=== PATIENT | male | born 1975 | race Caucasian/White ===

== ENCOUNTER 2022-03-13 23:43 | Emergency (ER) | payer OTHER ==
[~2022-03-13] VITALS: Ht 177.8 cm; Wt 93.9 kg
[2022-03-14] MEDS ORDERED: IBUP-2070 PO (01:17)
[2022-03-14 01:21] LABS: APPEARANCE,URINE CLEAR (CLEAR); BILIRUBIN,URINE NEGATIVE (NEGATIVE); COLOR,URINE YELLOW (YELLOW); GLUCOSE, URINE (UA) NEGATIVE (NEGATIVE); KETONES,URINE NEGATIVE (NEGATIVE); LEUKOCYTE ESTERASE ,URINE NEGATIVE (NEGATIVE); NITRATE,URINE NEGATIVE (NEGATIVE); OCCULT BLOOD,URINE NEGATIVE (NEGATIVE); PH,URINE 6.5 (5.0-8.0); PROTEIN,URINE NEGATIVE (NEGATIVE); UROBILINOGEN,URINE 0.2 mg/dL (0.2-1.0)
[2022-03-14 01:23] LABS: BASOPHILS % (AUTO) 0.9 % (0.0-5.0); EOSINOPHILS % (AUTO) 5.8 % (0.0-8.0); HEMATOCRIT 37.7 % (42-54); MEAN CORPUSCULAR HEMOGLOBIN 28.3 pg (27.0-33.0); MEAN CORPUSCULAR HGB CONC 32.9 g/dL (32.0-36.0); MEAN CORPUSCULAR VOLUME 86.1 fL (79-99); MONOCYTES % (AUTO) 12.2 % (3.0-13.0); NEUTROPHILS % (AUTO) 49.8 % (40.0-77.0); PLATELET COUNT (AUTO) 302 K/uL (130-400); RED BLOOD CELL COUNT(AUTO) 4.38 MIL/uL (4.50-6.20); RED CELL DISTRIBUTION WIDTH 12.6 % (11.0-15.5); WHITE BLOOD COUNT (AUTO) 7.7 K/uL (4.8-10.8)
[2022-03-14 01:29] LABS: AMPHET/METH SCREEN,URINE NEGATIVE (NEGATIVE); BARBITURATE SCREEN, URINE NEGATIVE (NEGATIVE); BENZODIAZEPINES SCREEN,URINE NEGATIVE (NEGATIVE); CANNABINOID SCREEN,URINE NEGATIVE (NEGATIVE); COCAINE SCREEN,URINE NEGATIVE (NEGATIVE); OPIATE SCREEN,URINE NEGATIVE (NEGATIVE); PHENCYCLIDINE SCREEN,URINE NEGATIVE (NEGATIVE)
[2022-03-14] MEDS ORDERED: IBUPROFEN 600 MG TABLET PO ONE (01:30)
[2022-03-14 01:35] LABS: CREATININE 0.8 mg/dL (0.5-1.5); POTASSIUM 3.8 mmol/L (3.5-5.1)
[2022-03-14 01:39] LABS: ALBUMIN 3.4 g/dL (3.5-5.0); BILIRUBIN,TOTAL 0.1 mg/dL (0.2-1.0); TOTAL PROTEIN, SERUM 6.5 g/dL (6.0-8.3)
[2022-03-14 01:46] VITALS: BP 114/72
== END 2022-03-14 02:30 | disposition home or self-care (01) ==
LOC: EDH 23:43
DX: R51.9 Headache, unspecified (principal); F99 Mental disorder, not otherwise specified; F17.200 Nicotine dependence, unspecified, uncomplicated
CPT/HCPCS: 36415; 80053; 80305; 81003; 85025

== ENCOUNTER 2022-04-05 00:29 | Emergency (ER) | payer OTHER ==
[~2022-04-05 00:29] MED LIST: IBUP-2070 PO
[2022-04-05] MEDS ORDERED: KETOROLAC 60 MG VIAL (30MG/ML) IM ONE (02:00)
[2022-04-05] MEDS ORDERED: DICL35CA3 PO (02:02)
[2022-04-05 02:18] VITALS: BP 146/88
== END 2022-04-05 02:51 | disposition home or self-care (01) ==
LOC: EDH 00:29
DX: R51.9 Headache, unspecified (principal); F17.200 Nicotine dependence, unspecified, uncomplicated; Z79.1 Long term (current) use of non-steroidal anti-inflammatories (NSAID)
CPT/HCPCS: 99283; 96372; 93005; J1885

== ENCOUNTER 2023-03-26 00:30 | Emergency (ER) | payer OTHER ==
[~2023-03-26] VITALS: Ht 177.8 cm; Wt 95.3 kg
[~2023-03-26 00:30] MED LIST changes: +DICL35CA3 PO
[2023-03-26 01:43] LABS: BASOPHILS % (AUTO) 0.8 % (0.0-5.0); EOSINOPHILS % (AUTO) 6.2 % (0.0-8.0); HEMATOCRIT 39.7 % (42-54); LYMPHOCYTES % (AUTO) 26.4 % (21.0-51.0); MEAN CORPUSCULAR HEMOGLOBIN 28.3 pg (27.0-33.0); MEAN CORPUSCULAR HGB CONC 32.7 g/dL (32.0-36.0); MEAN CORPUSCULAR VOLUME 86.5 fL (79-99); MONOCYTES % (AUTO) 8.9 % (3.0-13.0); NEUTROPHILS % (AUTO) 57.4 % (40.0-77.0); PLATELET COUNT (AUTO) 298 K/uL (130-400); RED BLOOD CELL COUNT(AUTO) 4.59 MIL/uL (4.50-6.20); RED CELL DISTRIBUTION WIDTH 12.9 % (11.0-15.5); WHITE BLOOD COUNT (AUTO) 7.6 K/uL (4.8-10.8)
[2023-03-26 02:19] LABS: CREATININE 0.9 mg/dL (0.5-1.5); POTASSIUM 3.7 mmol/L (3.5-5.1)
[2023-03-26 02:25] LABS: ALBUMIN 3.6 g/dL (3.5-5.0); MAGNESIUM 2.1 mg/dL (1.80-2.40); TOTAL PROTEIN, SERUM 6.5 g/dL (6.0-8.3)
[2023-03-26] MEDS ORDERED: METOCLOPRAMIDE 10 MG/2 ML VIAL IVP ONE (02:30)
[2023-03-26] MEDS ORDERED: FAMOTIDINE 20MG VIAL IV ONE (02:30)
[2023-03-26] MEDS ORDERED: KETOROLAC 30MG VIAL (30MG/ML) IVP ONE (02:30)
[2023-03-26] MEDS ORDERED: ASPIRIN 325MG TAB PO ONE (02:30)
[2023-03-26] MEDS ORDERED: HYDR50CA50 PO (02:55)
[2023-03-26] MEDS ORDERED: METO-296 PO (02:55)
[2023-03-26 02:57] VITALS: BP 101/65
== END 2023-03-26 03:09 | disposition home or self-care (01) ==
LOC: EDH 00:30
DX: G44.209 Tension-type headache, unspecified, not intractable (principal); F41.9 Anxiety disorder, unspecified; F17.200 Nicotine dependence, unspecified, uncomplicated; Z20.822 Contact with and (suspected) exposure to COVID-19; Z79.899 Other long term (current) drug therapy
CPT/HCPCS: 99285; 96374; 71045; 96375; 87635; 82550; 83735; 83874; 84484; 80053; 83690; 85025; 87804 ×2; 83605; 36415; 93005; C9803; J3490; J1885; J2765

== ENCOUNTER 2023-04-03 03:33 | Emergency (ER) | payer OTHER ==
[~2023-04-03] VITALS: Ht 180.3 cm; Wt 97.5 kg
[~2023-04-03 03:33] MED LIST changes: +HYDR50CA50 PO; +METO-296 PO
[2023-04-03 04:36] VITALS: BP 148/84
[2023-04-03] MEDS ORDERED: METOCLOPRAMIDE 10 MG/2 ML VIAL IVP ONE (05:00)
[2023-04-03] MEDS ORDERED: DiphenhydrAMINE HCL 50 MG/ML VIAL IV ONE (05:00)
[2023-04-03] MEDS ORDERED: KETOROLAC 30MG VIAL (30MG/ML) IVP ONE (05:00)
== END 2023-04-03 06:09 | disposition home or self-care (01) ==
LOC: EDH 03:33
DX: G43.909 Migraine, unspecified, not intractable, without status migrainosus (principal); F17.200 Nicotine dependence, unspecified, uncomplicated; Z79.899 Other long term (current) drug therapy
CPT/HCPCS: 99284; 96374; 96375; J1200; J1885; J2765

== ENCOUNTER 2023-04-16 06:17 | Emergency (ER) | payer OTHER ==
[~2023-04-16] VITALS: Ht 177.8 cm; Wt 99.8 kg
[2023-04-16 06:37] VITALS: BP 126/72; PULSE 69; RESP 14; O2SAT 98
[2023-04-16] MEDS ORDERED: METOCLOPRAMIDE 10 MG/2 ML VIAL IVP ONE (07:30)
[2023-04-16] MEDS ORDERED: DEXAMETHASONE SOD PHOSPHATE 4 MG/ML 1ML VIAL IVP ONE (07:30)
[2023-04-16] MEDS ORDERED: MORPHINE 2 MG SYG IVP ONE (07:30)
[2023-04-16 07:37] LABS: MEAN CORPUSCULAR HEMOGLOBIN 28.3 pg (27.0-33.0); MEAN CORPUSCULAR HGB CONC 32.8 g/dL (32.0-36.0); MEAN CORPUSCULAR VOLUME 86.3 fL (79-99); RED BLOOD CELL COUNT(AUTO) 4.52 MIL/uL (4.50-6.20); RED CELL DISTRIBUTION WIDTH 12.8 % (11.0-15.5); WHITE BLOOD COUNT (AUTO) 7.1 K/uL (4.8-10.8)
[2023-04-16 07:49] LABS: CREATININE 0.8 mg/dL (0.5-1.5)
[2023-04-16 08:18] LABS: APPEARANCE,URINE CLEAR (CLEAR); BILIRUBIN,URINE NEGATIVE (NEGATIVE); COLOR,URINE COLORLESS (YELLOW); GLUCOSE, URINE (UA) NEGATIVE (NEGATIVE); KETONES,URINE NEGATIVE (NEGATIVE); LEUKOCYTE ESTERASE ,URINE NEGATIVE Leu/uL (NEGATIVE); NITRATE,URINE NEGATIVE (NEGATIVE); OCCULT BLOOD,URINE NEGATIVE (NEGATIVE); PROTEIN,URINE NEGATIVE (NEGATIVE); UROBILINOGEN,URINE 0.2 mg/dL (0.2-1.0)
[2023-04-16 08:25] LABS: AMPHET/METH SCREEN,URINE NEGATIVE (NEGATIVE); BARBITURATE SCREEN, URINE NEGATIVE (NEGATIVE); BENZODIAZEPINES SCREEN,URINE NEGATIVE (NEGATIVE); CANNABINOID SCREEN,URINE NEGATIVE (NEGATIVE); COCAINE SCREEN,URINE NEGATIVE (NEGATIVE); OPIATE SCREEN,URINE NEGATIVE (NEGATIVE); PHENCYCLIDINE SCREEN,URINE NEGATIVE (NEGATIVE)
== END 2023-04-16 08:15 | disposition left against medical advice (07) ==
LOC: EDH 06:17
DX: R07.9 Chest pain, unspecified (principal); R51.9 Headache, unspecified
CPT/HCPCS: 36415; 80048; 80305; 81003; 84484; 85027; 96374; 96375; J1100; J2270; J2765

== ENCOUNTER 2023-04-27 03:23 | Emergency (ER) | payer OTHER ==
[~2023-04-27] VITALS: Ht 180.3 cm; Wt 99.3 kg
[2023-04-27] MEDS ORDERED: ASPIRIN 325MG TAB PO ONE (04:00)
[2023-04-27 04:13] LABS: RAPID GROUP A STREP negative (NEGATIVE)
[2023-04-27 04:16] LABS: SARS-CoV-2, RNA, NAAT NEGATIVE SARS CoV-2 (NEGATIVE)
[2023-04-27 04:23] LABS: INFLUENZA TYPE A Negative For Type A (NEGATIVE); INFLUENZA TYPE B Negative For Type B (NEGATIVE)
[2023-04-27 04:33] LABS: BASOPHILS # (AUTO) 0.05 K/uL (0.00-0.20); BASOPHILS % (AUTO) 0.7 % (0.0-5.0); EOSINOPHILS # (AUTO) 0.36 K/uL (0.00-0.70); EOSINOPHILS % (AUTO) 4.9 % (0.0-8.0); HEMATOCRIT 37.2 % (42-54); IMMATURE GRANULOCYTE ABSOLUTE 0.03 K/uL (0-1); LYMPHOCYTES % (AUTO) 27.4 % (21.0-51.0); MEAN CORPUSCULAR HEMOGLOBIN 29.1 pg (27.0-33.0); MEAN CORPUSCULAR HGB CONC 33.6 g/dL (32.0-36.0); MEAN CORPUSCULAR VOLUME 86.5 fL (79-99); MONOCYTES # (AUTO) 0.8 K/uL (0.1-1.0); MONOCYTES % (AUTO) 10.5 % (3.0-13.0); NEUTROPHILS # (AUTO) 4.1 K/uL (1.8-7.7); NEUTROPHILS % (AUTO) 56.1 % (40.0-77.0); PLATELET COUNT (AUTO) 262 K/uL (130-400); RED CELL DISTRIBUTION WIDTH 13.2 % (11.0-15.5); WHITE BLOOD COUNT (AUTO) 7.3 K/uL (4.8-10.8)
[2023-04-27 04:40] LABS: CREATININE 0.9 mg/dL (0.5-1.5); POTASSIUM 3.7 mmol/L (3.5-5.1)
[2023-04-27 05:25] VITALS: BP 130/72; PULSE 80; RESP 18; O2SAT 98
== END 2023-04-27 05:30 | disposition home or self-care (01) ==
LOC: EDH 03:23
DX: R07.89 Other chest pain (principal); F17.200 Nicotine dependence, unspecified, uncomplicated; Z20.822 Contact with and (suspected) exposure to COVID-19; Z79.899 Other long term (current) drug therapy
CPT/HCPCS: 99285; 71045; 87635; 84484; 80048; 85025; 85378; 87880; 87804 ×2; 36415; 93005; C9803

== ENCOUNTER 2023-04-29 17:37 | Emergency (ER) | payer OTHER ==
[~2023-04-29] VITALS: Ht 180.3 cm; Wt 97.5 kg
[2023-04-29 18:14] LABS: APPEARANCE,URINE CLEAR (CLEAR); BILIRUBIN,URINE NEGATIVE (NEGATIVE); COLOR,URINE YELLOW (YELLOW); GLUCOSE, URINE (UA) NEGATIVE (NEGATIVE); KETONES,URINE NEGATIVE (NEGATIVE); LEUKOCYTE ESTERASE ,URINE NEGATIVE Leu/uL (NEGATIVE); NITRATE,URINE NEGATIVE (NEGATIVE); OCCULT BLOOD,URINE NEGATIVE (NEGATIVE); PROTEIN,URINE 30 mg/dL (NEGATIVE); UROBILINOGEN,URINE 0.2 mg/dL (0.2-1.0)
[2023-04-29 18:18] LABS: BASOPHILS # (AUTO) 0.05 K/uL (0.00-0.20); BASOPHILS % (AUTO) 0.6 % (0.0-5.0); CREATININE 1.1 mg/dL (0.5-1.5); EOSINOPHILS # (AUTO) 0.36 K/uL (0.00-0.70); EOSINOPHILS % (AUTO) 4.2 % (0.0-8.0); HEMATOCRIT 41.2 % (42-54); IMMATURE GRANULOCYTE ABSOLUTE 0.03 K/uL (0-1); LYMPHOCYTES # (AUTO) 2.3 K/uL (1.0-4.8); LYMPHOCYTES % (AUTO) 26.4 % (21.0-51.0); MEAN CORPUSCULAR HEMOGLOBIN 28.4 pg (27.0-33.0); MONOCYTES # (AUTO) 0.8 K/uL (0.1-1.0); MONOCYTES % (AUTO) 9.4 % (3.0-13.0); NEUTROPHILS # (AUTO) 5.1 K/uL (1.8-7.7); NEUTROPHILS % (AUTO) 59.1 % (40.0-77.0); PLATELET COUNT (AUTO) 339 K/uL (130-400); POTASSIUM 3.4 mmol/L (3.5-5.1); RED BLOOD CELL COUNT(AUTO) 4.79 MIL/uL (4.50-6.20); WHITE BLOOD COUNT (AUTO) 8.6 K/uL (4.8-10.8)
[2023-04-29 18:23] LABS: ADD UA MICROSCOPIC YES
[2023-04-29 18:28] LABS: ALBUMIN 3.2 g/dL (3.5-5.0); BILIRUBIN,TOTAL 0.3 mg/dL (0.2-1.0); TOTAL PROTEIN, SERUM 6.2 g/dL (6.0-8.3)
[2023-04-29] MEDS ORDERED: METOCLOPRAMIDE 10 MG/2 ML VIAL IVP ONE (18:30)
[2023-04-29] MEDS ORDERED: DiphenhydrAMINE HCL 50 MG/ML VIAL IV ONE (18:30)
[2023-04-29 18:43] LABS: BACTERIA,URINE RARE /HPF (None Seen); MUCUS,URINE MOD LPF (None Seen); OTHER CASTS, URINE 1 /LPF (None Seen); SQUAMOUS EPITHELIAL CELL,UR RARE /HPF (0-2); UNCLASSIFIED CRYSTAL 1 /HPF (None Seen)
[2023-04-29] MEDS ORDERED: PANTOPRAZOLE 40 MG/VIAL IVP ONE (19:00)
[2023-04-29] MEDS ORDERED: MAG/ALUM/SIMETH 30 ML UDCUP PO ONE (19:00)
[2023-04-29] MEDS ORDERED: POTASSIUM BICARB/CIT AC 25 MEQ TABLET.EFF PO ONE (22:00)
[2023-04-29] MEDS ORDERED: MELO-106 PO (22:12)
[2023-04-29] MEDS ORDERED: METO-296 PO (22:12)
[2023-04-29 22:15] VITALS: BP 117/81; PULSE 78; RESP 18; O2SAT 98
== END 2023-04-29 22:25 | disposition home or self-care (01) ==
LOC: EDH 17:37
DX: G43.909 Migraine, unspecified, not intractable, without status migrainosus (principal); E87.6 Hypokalemia; E07.89 Other specified disorders of thyroid; H57.13 Ocular pain, bilateral; F17.200 Nicotine dependence, unspecified, uncomplicated; Z79.899 Other long term (current) drug therapy; Z98.890 Other specified postprocedural states
CPT/HCPCS: 99285; 96374; 71045; 96375; 84484 ×2; 80053; 85025; 81001; 36415; 93005 ×2; J1200; C9113; J2765

== ENCOUNTER 2023-05-01 21:18 | Emergency (ER) | payer OTHER ==
[~2023-05-01] VITALS: Ht 180.3 cm; Wt 98.9 kg
[~2023-05-01 21:18] MED LIST changes: +MELO-106 PO
[2023-05-02 01:00] LABS: BASOPHILS # (AUTO) 0.05 K/uL (0.00-0.20); BASOPHILS % (AUTO) 0.6 % (0.0-5.0); EOSINOPHILS # (AUTO) 0.49 K/uL (0.00-0.70); EOSINOPHILS % (AUTO) 6.3 % (0.0-8.0); HEMATOCRIT 37.7 % (42-54); IMMATURE GRANULOCYTE ABSOLUTE 0.02 K/uL (0-1); LYMPHOCYTES # (AUTO) 2.5 K/uL (1.0-4.8); LYMPHOCYTES % (AUTO) 32.3 % (21.0-51.0); MEAN CORPUSCULAR HEMOGLOBIN 28.9 pg (27.0-33.0); MEAN CORPUSCULAR HGB CONC 33.4 g/dL (32.0-36.0); MEAN CORPUSCULAR VOLUME 86.5 fL (79-99); MONOCYTES # (AUTO) 0.9 K/uL (0.1-1.0); MONOCYTES % (AUTO) 11.2 % (3.0-13.0); NEUTROPHILS # (AUTO) 3.8 K/uL (1.8-7.7); NEUTROPHILS % (AUTO) 49.3 % (40.0-77.0); PLATELET COUNT (AUTO) 299 K/uL (130-400); RED BLOOD CELL COUNT(AUTO) 4.36 MIL/uL (4.50-6.20); WHITE BLOOD COUNT (AUTO) 7.8 K/uL (4.8-10.8)
[2023-05-02 01:11] LABS: POTASSIUM 3.6 mmol/L (3.5-5.1)
[2023-05-02 01:27] LABS: BILIRUBIN,TOTAL 0.2 mg/dL (0.2-1.0); TOTAL PROTEIN, SERUM 5.8 g/dL (6.0-8.3)
[2023-05-02] MEDS ORDERED: 0.9% NACL 500ML IV.SOLN 500 ML IV ONE (01:30)
[2023-05-02] MEDS ORDERED: ONDANSETRON 4MG INJ IVP ONE (01:30)
[2023-05-02] MEDS ORDERED: KETOROLAC 15MG/ML VIAL (15MG/ML) IV ONE (03:30)
[2023-05-02 04:25] VITALS: BP 109/59; PULSE 67; RESP 18; O2SAT 99
== END 2023-05-02 04:30 | disposition home or self-care (01) ==
LOC: EDH 21:18
DX: G43.909 Migraine, unspecified, not intractable, without status migrainosus (principal); F17.200 Nicotine dependence, unspecified, uncomplicated; Z79.899 Other long term (current) drug therapy
CPT/HCPCS: 99285; 84484; 80053; 85025; 36415; 93005; 96374; 71045; 96375; J7040; J2405; J1885

== ENCOUNTER 2023-05-02 18:04 | Emergency (ER) | payer OTHER ==
[~2023-05-02] VITALS: Ht 180.3 cm; Wt 97.5 kg
[2023-05-02 21:18] LABS: BASOPHILS # (AUTO) 0.05 K/uL (0.00-0.20); BASOPHILS % (AUTO) 0.6 % (0.0-5.0); EOSINOPHILS # (AUTO) 0.48 K/uL (0.00-0.70); EOSINOPHILS % (AUTO) 5.4 % (0.0-8.0); HEMATOCRIT 39.4 % (42-54); IMMATURE GRANULOCYTE ABSOLUTE 0.03 K/uL (0-1); LYMPHOCYTES # (AUTO) 2.8 K/uL (1.0-4.8); LYMPHOCYTES % (AUTO) 31.6 % (21.0-51.0); MEAN CORPUSCULAR HEMOGLOBIN 28.5 pg (27.0-33.0); MEAN CORPUSCULAR HGB CONC 32.2 g/dL (32.0-36.0); MEAN CORPUSCULAR VOLUME 88.5 fL (79-99); MONOCYTES # (AUTO) 0.8 K/uL (0.1-1.0); MONOCYTES % (AUTO) 8.9 % (3.0-13.0); NEUTROPHILS # (AUTO) 4.7 K/uL (1.8-7.7); NEUTROPHILS % (AUTO) 53.2 % (40.0-77.0); PLATELET COUNT (AUTO) 329 K/uL (130-400); RED BLOOD CELL COUNT(AUTO) 4.45 MIL/uL (4.50-6.20); WHITE BLOOD COUNT (AUTO) 8.8 K/uL (4.8-10.8)
[2023-05-02 21:27] LABS: CREATININE 0.9 mg/dL (0.5-1.5); POTASSIUM 3.8 mmol/L (3.5-5.1)
[2023-05-02 21:32] LABS: ALBUMIN 3.3 g/dL (3.5-5.0); BILIRUBIN,TOTAL 0.2 mg/dL (0.2-1.0); TOTAL PROTEIN, SERUM 6.4 g/dL (6.0-8.3)
[2023-05-02 22:01] VITALS: BP 111/62; PULSE 72; RESP 16; O2SAT 98
== END 2023-05-02 22:37 | disposition home or self-care (01) ==
LOC: EDH 18:04
DX: F41.9 Anxiety disorder, unspecified (principal); F17.200 Nicotine dependence, unspecified, uncomplicated; Z79.899 Other long term (current) drug therapy; Z98.890 Other specified postprocedural states
CPT/HCPCS: 36415; 71045; 80053; 84484; 85025; 93005

== ENCOUNTER 2023-05-03 11:47 | Emergency (ER) | payer OTHER ==
[~2023-05-03] VITALS: Ht 180.3 cm; Wt 97.5 kg
[2023-05-03 11:52] VITALS: BP 129/77; PULSE 70; RESP 16; O2SAT 98
[2023-05-03] MEDS ORDERED: ACETAMINOPHEN 500 MG TABLET PO SCH (13:30)
[2023-05-03 14:25] LABS: BASOPHILS # (AUTO) 0.06 K/uL (0.00-0.20); BASOPHILS % (AUTO) 0.9 % (0.0-5.0); EOSINOPHILS # (AUTO) 0.27 K/uL (0.00-0.70); HEMATOCRIT 40.9 % (42-54); IMMATURE GRANULOCYTE ABSOLUTE 0.02 K/uL (0-1); LYMPHOCYTES # (AUTO) 1.7 K/uL (1.0-4.8); LYMPHOCYTES % (AUTO) 24.5 % (21.0-51.0); MEAN CORPUSCULAR HEMOGLOBIN 28.4 pg (27.0-33.0); MEAN CORPUSCULAR HGB CONC 32.5 g/dL (32.0-36.0); MEAN CORPUSCULAR VOLUME 87.4 fL (79-99); MONOCYTES # (AUTO) 0.6 K/uL (0.1-1.0); MONOCYTES % (AUTO) 8.3 % (3.0-13.0); NEUTROPHILS # (AUTO) 4.2 K/uL (1.8-7.7); PLATELET COUNT (AUTO) 322 K/uL (130-400); RED BLOOD CELL COUNT(AUTO) 4.68 MIL/uL (4.50-6.20); RED CELL DISTRIBUTION WIDTH 12.9 % (11.0-15.5); WHITE BLOOD COUNT (AUTO) 6.8 K/uL (4.8-10.8)
[2023-05-03 14:39] LABS: CREATININE 0.9 mg/dL (0.5-1.5); POTASSIUM 4.8 mmol/L (3.5-5.1)
[2023-05-03 14:43] LABS: ALBUMIN 3.4 g/dL (3.5-5.0); BILIRUBIN,TOTAL 0.2 mg/dL (0.2-1.0); MAGNESIUM 2.3 mg/dL (1.80-2.40); TOTAL PROTEIN, SERUM 6.4 g/dL (6.0-8.3)
[2023-05-03] MEDS ORDERED: METOCLOPRAMIDE 10 MG/2 ML VIAL IM ONE (15:00)
[2023-05-03 18:56] LABS: APPEARANCE,URINE CLEAR (CLEAR); BILIRUBIN,URINE NEGATIVE (NEGATIVE); COLOR,URINE LIGHT-YELLOW (YELLOW); GLUCOSE, URINE (UA) NEGATIVE (NEGATIVE); KETONES,URINE NEGATIVE (NEGATIVE); LEUKOCYTE ESTERASE ,URINE NEGATIVE Leu/uL (NEGATIVE); NITRATE,URINE NEGATIVE (NEGATIVE); OCCULT BLOOD,URINE NEGATIVE (NEGATIVE); PH,URINE 5.5 (5.0-8.0); PROTEIN,URINE NEGATIVE (NEGATIVE); UROBILINOGEN,URINE 0.2 mg/dL (0.2-1.0)
[2023-05-03 19:02] LABS: ADD UA MICROSCOPIC YES; AMPHET/METH SCREEN,URINE NEGATIVE (NEGATIVE); BARBITURATE SCREEN, URINE NEGATIVE (NEGATIVE); BENZODIAZEPINES SCREEN,URINE NEGATIVE (NEGATIVE); CANNABINOID SCREEN,URINE NEGATIVE (NEGATIVE); COCAINE SCREEN,URINE NEGATIVE (NEGATIVE); OPIATE SCREEN,URINE NEGATIVE (NEGATIVE); PHENCYCLIDINE SCREEN,URINE NEGATIVE (NEGATIVE)
[2023-05-03 19:03] LABS: MUCUS,URINE RARE LPF (None Seen); WBC,URINE 0-1 /HPF (0-1)
== END 2023-05-03 20:04 | disposition left against medical advice (07) ==
LOC: EDH 11:47
DX: R07.89 Other chest pain (principal); R51.9 Headache, unspecified; F17.200 Nicotine dependence, unspecified, uncomplicated; Z79.899 Other long term (current) drug therapy; Z88.8 Allergy status to other drugs, medicaments and biological substances
CPT/HCPCS: 36415; 70450; 71045; 80053; 80305; 81001; 82550; 83735; 84484; 85025; 93005

== ENCOUNTER 2023-05-04 23:25 | Emergency (ER) | payer OTHER ==
[~2023-05-04] VITALS: Ht 180.3 cm; Wt 99.3 kg
[2023-05-04 23:26] VITALS: BP 109/63; PULSE 65; RESP 20
[2023-05-06] MEDS ORDERED: FAMO20TA8 PO (20:54)
== END 2023-05-05 00:05 | disposition home or self-care (01) ==
LOC: EDH 23:25
DX: R51.9 Headache, unspecified (principal); F17.200 Nicotine dependence, unspecified, uncomplicated; Z79.899 Other long term (current) drug therapy
CPT/HCPCS: 99282

== ENCOUNTER 2023-05-06 15:02 | Emergency (ER) | payer OTHER ==
[~2023-05-06] VITALS: Ht 180.3 cm; Wt 97.5 kg
[2023-05-06 15:45] LABS: BASOPHILS # (AUTO) 0.05 K/uL (0.00-0.20); BASOPHILS % (AUTO) 0.7 % (0.0-5.0); EOSINOPHILS # (AUTO) 0.14 K/uL (0.00-0.70); EOSINOPHILS % (AUTO) 2.1 % (0.0-8.0); HEMATOCRIT 40.2 % (42-54); IMMATURE GRANULOCYTE ABSOLUTE 0.01 K/uL (0-1); LYMPHOCYTES # (AUTO) 1.8 K/uL (1.0-4.8); LYMPHOCYTES % (AUTO) 26.5 % (21.0-51.0); MEAN CORPUSCULAR HEMOGLOBIN 28.3 pg (27.0-33.0); MEAN CORPUSCULAR HGB CONC 32.6 g/dL (32.0-36.0); MEAN CORPUSCULAR VOLUME 86.8 fL (79-99); MONOCYTES # (AUTO) 0.7 K/uL (0.1-1.0); MONOCYTES % (AUTO) 9.7 % (3.0-13.0); NEUTROPHILS # (AUTO) 4.1 K/uL (1.8-7.7); NEUTROPHILS % (AUTO) 60.9 % (40.0-77.0); PLATELET COUNT (AUTO) 325 K/uL (130-400); RED BLOOD CELL COUNT(AUTO) 4.63 MIL/uL (4.50-6.20); WHITE BLOOD COUNT (AUTO) 6.7 K/uL (4.8-10.8)
[2023-05-06 15:54] LABS: CREATININE 0.9 mg/dL (0.5-1.5); POTASSIUM 4.2 mmol/L (3.5-5.1)
[2023-05-06 16:04] LABS: ALBUMIN 3.3 g/dL (3.5-5.0); BILIRUBIN,TOTAL 0.2 mg/dL (0.2-1.0); TOTAL PROTEIN, SERUM 6.3 g/dL (6.0-8.3)
[2023-05-06 18:13] VITALS: BP 138/74; PULSE 87; RESP 16; O2SAT 100
[2023-05-06] MEDS ORDERED: FAMO20TA8 PO (20:54)
== END 2023-05-06 18:42 | disposition left against medical advice (07) ==
LOC: EDH 15:02
DX: R10.9 Unspecified abdominal pain (principal); Z53.21 Procedure and treatment not carried out due to patient leaving prior to being seen by health care provider
CPT/HCPCS: 36415; 80053; 82550; 83690; 83874; 84484; 85025; 93005; 99281

== ENCOUNTER 2023-05-06 20:01 | Emergency (ER) | payer OTHER ==
[~2023-05-06] VITALS: Ht 175.3 cm; Wt 99.4 kg
[2023-05-06] MEDS ORDERED: FAMO20TA8 PO (20:54)
[2023-05-06] MEDS ORDERED: LIDOCAINE HCL 2% VISCOUS 15 ML UDCUP PO ONE (21:00)
[2023-05-06] MEDS ORDERED: MAG/ALUM/SIMETH 30 ML UDCUP PO ONE (21:00)
[2023-05-06 21:33] VITALS: BP 131/62; PULSE 78; RESP 16; O2SAT 98
== END 2023-05-06 21:40 | disposition home or self-care (01) ==
LOC: EDH 20:01
DX: K21.9 Gastro-esophageal reflux disease without esophagitis (principal); F17.200 Nicotine dependence, unspecified, uncomplicated; Z79.899 Other long term (current) drug therapy
CPT/HCPCS: 99282

== ENCOUNTER 2023-05-08 00:59 | Emergency (ER) | payer OTHER ==
[~2023-05-08] VITALS: Ht 175.3 cm; Wt 98.9 kg
[~2023-05-08 00:59] MED LIST changes: +FAMO20TA8 PO
[2023-05-08 02:53] VITALS: BP 121/74; PULSE 69; RESP 16; O2SAT 98
[2023-05-09] MEDS ORDERED: OMEP40CA21 PO (15:15)
[2023-05-09] MEDS ORDERED: ONDA4TAB10 PO (15:15)
== END 2023-05-08 03:24 | disposition home or self-care (01) ==
LOC: EDH 00:59
DX: K21.9 Gastro-esophageal reflux disease without esophagitis (principal); G44.209 Tension-type headache, unspecified, not intractable; Z79.899 Other long term (current) drug therapy
CPT/HCPCS: 99281

== ENCOUNTER 2023-05-09 11:51 | Emergency (ER) | payer OTHER ==
[~2023-05-09] VITALS: Ht 180.3 cm; Wt 97.5 kg
[~2023-05-09 11:51] MED LIST changes: -DICL35CA3 PO; -HYDR50CA50 PO; -IBUP-2070 PO
[2023-05-09 12:58] LABS: BASOPHILS # (AUTO) 0.05 K/uL (0.00-0.20); BASOPHILS % (AUTO) 0.6 % (0.0-5.0); EOSINOPHILS # (AUTO) 0.46 K/uL (0.00-0.70); EOSINOPHILS % (AUTO) 5.8 % (0.0-8.0); HEMATOCRIT 40.4 % (42-54); IMMATURE GRANULOCYTE ABSOLUTE 0.02 K/uL (0-1); LYMPHOCYTES # (AUTO) 1.6 K/uL (1.0-4.8); LYMPHOCYTES % (AUTO) 20.2 % (21.0-51.0); MEAN CORPUSCULAR HEMOGLOBIN 28.3 pg (27.0-33.0); MEAN CORPUSCULAR HGB CONC 33.2 g/dL (32.0-36.0); MEAN CORPUSCULAR VOLUME 85.4 fL (79-99); MONOCYTES # (AUTO) 0.9 K/uL (0.1-1.0); MONOCYTES % (AUTO) 10.8 % (3.0-13.0); NEUTROPHILS % (AUTO) 62.3 % (40.0-77.0); PLATELET COUNT (AUTO) 343 K/uL (130-400); RED BLOOD CELL COUNT(AUTO) 4.73 MIL/uL (4.50-6.20); RED CELL DISTRIBUTION WIDTH 13.1 % (11.0-15.5)
[2023-05-09 13:04] LABS: CREATININE 0.9 mg/dL (0.5-1.5); POTASSIUM 3.9 mmol/L (3.5-5.1)
[2023-05-09 13:08] LABS: ALBUMIN 3.4 g/dL (3.5-5.0); BILIRUBIN,TOTAL 0.2 mg/dL (0.2-1.0); TOTAL PROTEIN, SERUM 6.5 g/dL (6.0-8.3)
[2023-05-09 13:21] LABS: APPEARANCE,URINE CLEAR (CLEAR); BILIRUBIN,URINE NEGATIVE (NEGATIVE); COLOR,URINE LIGHT-YELLOW (YELLOW); GLUCOSE, URINE (UA) NEGATIVE (NEGATIVE); KETONES,URINE NEGATIVE (NEGATIVE); LEUKOCYTE ESTERASE ,URINE NEGATIVE Leu/uL (NEGATIVE); NITRATE,URINE NEGATIVE (NEGATIVE); OCCULT BLOOD,URINE NEGATIVE (NEGATIVE); PROTEIN,URINE NEGATIVE (NEGATIVE); UROBILINOGEN,URINE 0.2 mg/dL (0.2-1.0)
[2023-05-09 13:26] LABS: ADD UA MICROSCOPIC NO
[2023-05-09] MEDS ORDERED: KETOROLAC 15MG/ML VIAL (15MG/ML) IV ONE (13:30)
[2023-05-09] MEDS ORDERED: KETOROLAC 60 MG VIAL (30MG/ML) IM ONE (13:30)
[2023-05-09] MEDS ORDERED: 0.9% NACL 500ML IV.SOLN 500 ML IV ONE (13:30)
[2023-05-09] MEDS ORDERED: METOCLOPRAMIDE 10 MG/2 ML VIAL IVP ONE (13:30)
[2023-05-09] MEDS ORDERED: LIDOCAINE HCL 2% VISCOUS 15 ML UDCUP PO ONE ×2 (14:00→14:30)
[2023-05-09] MEDS ORDERED: DICYCLOMINE HCL 10 MG/5 ML ML PO ONE (14:00)
[2023-05-09] MEDS ORDERED: MAG/ALUM/SIMETH 30 ML UDCUP PO ONE (14:00)
[2023-05-09] MEDS ORDERED: DICYCLOMINE HCL 10 MG/5 ML ML PO SCH (14:30)
[2023-05-09] MEDS ORDERED: ONDA4TAB10 PO (15:15)
[2023-05-09] MEDS ORDERED: OMEP40CA21 PO (15:15)
[2023-05-09 15:27] VITALS: BP 113/80; PULSE 55; RESP 18; O2SAT 100
== END 2023-05-09 15:28 | disposition home or self-care (01) ==
LOC: EDH 11:51
DX: K21.9 Gastro-esophageal reflux disease without esophagitis (principal); R10.13 Epigastric pain; R11.2 Nausea with vomiting, unspecified; F17.200 Nicotine dependence, unspecified, uncomplicated; Z79.899 Other long term (current) drug therapy; Z98.890 Other specified postprocedural states
CPT/HCPCS: 99284; 96374; 96361; 96375; 84484; 80053; 83690; 85025; 81003; 36415; 93005; J7040; J2765; J1885

== ENCOUNTER 2023-05-13 03:18 | Emergency (ER) | payer OTHER ==
[~2023-05-13] VITALS: Ht 180.3 cm; Wt 97.5 kg
[~2023-05-13 03:18] MED LIST changes: +OMEP40CA21 PO; +ONDA4TAB10 PO
[2023-05-13] MEDS ORDERED: OMEP40CA21 PO (03:51)
[2023-05-13] MEDS ORDERED: KETOROLAC 60 MG VIAL (30MG/ML) IM ONE (04:00)
[2023-05-13 04:02] VITALS: BP 150/92; PULSE 75; RESP 16; O2SAT 99
== END 2023-05-13 04:04 | disposition home or self-care (01) ==
LOC: EDH 03:18
DX: G43.909 Migraine, unspecified, not intractable, without status migrainosus (principal); R07.89 Other chest pain; F17.200 Nicotine dependence, unspecified, uncomplicated; K21.9 Gastro-esophageal reflux disease without esophagitis; Z79.899 Other long term (current) drug therapy
CPT/HCPCS: 99282; J1885

== ENCOUNTER 2023-05-14 21:20 | Emergency (ER) | payer OTHER ==
[~2023-05-14] VITALS: Ht 180.3 cm; Wt 97.1 kg
[2023-05-14 23:57] VITALS: BP 123/60; PULSE 68; RESP 16
== END 2023-05-15 02:15 | disposition left against medical advice (07) ==
LOC: EDH 21:20
DX: R07.9 Chest pain, unspecified (principal); R42 Dizziness and giddiness; F17.200 Nicotine dependence, unspecified, uncomplicated; K21.9 Gastro-esophageal reflux disease without esophagitis; Z79.899 Other long term (current) drug therapy
CPT/HCPCS: 99281

== ENCOUNTER 2023-05-18 01:15 | Emergency (ER) | payer OTHER ==
[~2023-05-18] VITALS: Ht 180.3 cm; Wt 97.1 kg
[2023-05-18 02:22] VITALS: BP 124/69; PULSE 62; RESP 18; O2SAT 100
== END 2023-05-18 02:28 | disposition home or self-care (01) ==
LOC: EDH 01:15
DX: R07.9 Chest pain, unspecified (principal); R51.9 Headache, unspecified; F17.200 Nicotine dependence, unspecified, uncomplicated; Z79.899 Other long term (current) drug therapy
CPT/HCPCS: 99281

== ENCOUNTER 2023-05-24 00:46 | Emergency (ER) | payer OTHER ==
[~2023-05-24] VITALS: Ht 180.3 cm; Wt 98.0 kg
[2023-05-24 00:47] VITALS: BP 137/80; PULSE 83; RESP 16
[2023-05-24] MEDS ORDERED: LIDOCAINE HCL 2% VISCOUS 15 ML UDCUP PO ONE (01:30)
[2023-05-24] MEDS ORDERED: FAMOTIDINE 20MG VIAL IV ONE (01:30)
[2023-05-24] MEDS ORDERED: 0.9%NACL 1000ML 1,000 ML IV ONE (01:30)
[2023-05-24] MEDS ORDERED: DICYCLOMINE HCL 10 MG/5 ML ML PO ONE (01:30)
[2023-05-24] MEDS ORDERED: MAG/ALUM/SIMETH 30 ML UDCUP PO ONE (01:30)
[2023-05-24] MEDS ORDERED: METOCLOPRAMIDE 10 MG/2 ML VIAL IVP ONE (01:30)
[2023-05-24 01:34] LABS: BASOPHILS # (AUTO) 0.04 K/uL (0.00-0.20); BASOPHILS % (AUTO) 0.5 % (0.0-5.0); EOSINOPHILS # (AUTO) 0.32 K/uL (0.00-0.70); EOSINOPHILS % (AUTO) 4.3 % (0.0-8.0); HEMATOCRIT 37.2 % (42-54); IMMATURE GRANULOCYTE ABSOLUTE 0.02 K/uL (0-1); LYMPHOCYTES % (AUTO) 27.1 % (21.0-51.0); MEAN CORPUSCULAR HGB CONC 33.3 g/dL (32.0-36.0); MEAN CORPUSCULAR VOLUME 86.9 fL (79-99); MONOCYTES # (AUTO) 0.7 K/uL (0.1-1.0); NEUTROPHILS # (AUTO) 4.3 K/uL (1.8-7.7); NEUTROPHILS % (AUTO) 57.8 % (40.0-77.0); PLATELET COUNT (AUTO) 266 K/uL (130-400); RED BLOOD CELL COUNT(AUTO) 4.28 MIL/uL (4.50-6.20); RED CELL DISTRIBUTION WIDTH 12.7 % (11.0-15.5); WHITE BLOOD COUNT (AUTO) 7.4 K/uL (4.8-10.8)
[2023-05-24 01:58] LABS: ALBUMIN 3.1 g/dL (3.5-5.0); BILIRUBIN,TOTAL 0.1 mg/dL (0.2-1.0); CREATININE 0.8 mg/dL (0.5-1.5); POTASSIUM 3.7 mmol/L (3.5-5.1); TOTAL PROTEIN, SERUM 6.1 g/dL (6.0-8.3)
== END 2023-05-24 02:33 | disposition home or self-care (01) ==
LOC: EDH 00:46
DX: K21.9 Gastro-esophageal reflux disease without esophagitis (principal); F17.200 Nicotine dependence, unspecified, uncomplicated; Z79.899 Other long term (current) drug therapy; Z98.890 Other specified postprocedural states
CPT/HCPCS: 99284; 96374; 96361; 96375; 84484; 80053; 83690; 85025; 36415; J3490; J7030; J2765